=== PATIENT | female | born 1970 | race Caucasian/White ===

== ENCOUNTER 2020-08-27 14:30 | Outpatient (RCR) | payer OTHER, SELFPAY | END 2020-08-27 23:59 | disposition home or self-care (01) | LOC: ANHAUDIO 14:30 | PROVIDERS: Referring Provider Nurse Practitioner; Visit Provider Nurse Practitioner | DX: Z46.1 Encounter for fitting and adjustment of hearing aid (principal) | CPT/HCPCS: 99199; V5160; V5261 ==